=== PATIENT | male | born 1980 | race Caucasian/White ===

== ENCOUNTER 2023-04-16 09:44 | Emergency (ER) | payer BC, SELFPAY ==
[2023-04-16 09:55] VITALS: BP 123/65; PULSE 72; RESP 18; TEMP 37.3; O2SAT 97; BMI 36.2
--- NOTE | 2023-04-16 10:05 | CRLHL7_ITS ---
For Patients: As a result of the Cures Act, medical imaging exams and procedure reports are released immediately into your electronic medical record. You may view this report before your referring provider. If you have questions, please contact your health care provider. INDICATION: Chest pain COMPARISON: None TECHNIQUE: PA and lateral views of the chest were acquired FINDINGS: TUBES AND LINES: None. HEART AND MEDIASTINUM: The heart size is normal. The mediastinal contour appears normal for patient age. LUNGS AND PLEURAL SPACES: The lungs appear normal.The pleural spaces are unremarkable. OSSEOUS STRUCTURES: Age-appropriate appearance. No acute focal finding. IMPRESSION: No evidence of active pulmonary disease. Dictated by Castillo Rizo MD @ 04/16/2023 10:48:43 AM (Electronically Signed)
[2023-04-16 10:29] LABS: Basophils Absolute Auto 0.02 K/uL (0.00-0.30); Basophils Percent Auto 0.3 % (0.0-3.0); Eosinophils Absolute Auto 0.16 K/uL (0.00-0.50); Eosinophils Percent Auto 2.2 % (0.0-7.0); Hematocrit 41.5 % (37.0-53.0); Hemoglobin* 14.1 gm/dL (13.5-17.5); Immature Granulocytes Abs Auto 0.01 K/uL (0.00-0.30); Immature Granulocytes Pct Auto 0.1 %; Lymphocytes Percent Auto 16.8 % (20-44); Mean Corpuscular HGB Conc 34 gm/dL (32-36); Mean Corpuscular Hemoglobin 29 pg (26-34); Mean Corpuscular Volume 85 fL (80-100); Monocytes Percent Auto 7.9 % (0.0-11.0); Neutrophils Percent Auto 72.7 % (42.0-72.0); Platelet Count* 257 K/uL (140-440); RDW Coefficient of Variation % 11.8 % (11.5-15.5); Red Blood Count 4.89 m/uL (4.30-5.90); White Blood Count* 7.38 K/uL (4.50-11.00)
[2023-04-16 10:32] LABS: Slide Review Reflex No
[2023-04-16 10:44] LABS: Chloride* 107 mmol/L (96-114); Potassium* 4.3 mmol/L (3.6-5.1); Sodium* 139 mmol/L (135-149)
--- NOTE | 2023-04-16 10:45 | ED.CHESTPAIN ---
HPI - Chest Pain General Date Seen: 04/16/23 Chief Complaint: Chest Pain Stated Complaint: Chest pain Time Seen by Provider: 04/16/23 09:48 Source: patient Mode of arrival: ambulatory Limitations: no limitations History of Present Illness HPI narrative: Patient is a 42-year-old male with upper midsternal chest pain. Has a history of high blood pressure. Has not smoked in over 20 years. No family history of heart conditions. No other pertinent medical problems. States the pain started yesterday notices it is her worst with movement. Occasionally positional changes makes the pain worse. States sitting in bed the pain is greatly improved. Also states he just took some Aleve prior to arrival. States it is a dull pain to his chest and is also painful in deep breaths. Denies fevers, chills, shortness of breath, lightheadedness, dizziness, weakness, numbness, vision changes, abdominal pain. Denies ever having symptoms like this before. States symptoms have seemed pretty consistent since they began last night. No history of blood clots or cancer. No recent surgeries or trauma. Related Data Home Medications Medication Instructions Recorded Confirmed lisinopril 10 mg tablet 10 mg PO DAILY 04/16/23 04/16/23 sertraline 100 mg tablet 100 mg PO DAILY 04/16/23 04/16/23 Allergies Allergy/AdvReac Type Severity Reaction Status Date / Time amoxicillin Allergy Verified 04/16/23 09:53 Review of Systems Status of ROS Reports: 10 or more systems reviewed and unremarkable except as noted in History and below PFS PFS Social History Smoking Status: Former smoker Do you use any of these nicotine containing products: None Second hand tobacco smoke exposure: No How often do you have a drink containing alcohol: never How often do you have six or more drinks on one occasion: Never AUDIT-C Alcohol total score: 0 Non-prescribed substance use: denies use service: No Exam Narrative Exam Narrative: Const: Well-nourished, Well-developed, in mild distress Eyes: PERRL, no conjunctival injection, and symmetrical lids HENT: Atraumatic external nose and ears. Moist mucous membranes. Neck: Symmetric, trachea midline, No thyromegaly. CVS: RRR, No murmurs or gallops. Peripheral pulses 2+ and equal in all extremities RESP: Unlabored respiratory effort. Clear to auscultation bilaterally. GI: Nontender/Nondistended, No rebound or guarding. MSK:Extremities w/o deformity, Normal Active ROM Skin: Warm, Dry. No rashes or lesions. Neuro: Normal Muscle tone, No focal neurological deficits. Psych: Awake, Alert, & Oriented x3. Appropriate mood and affect. Const Vital Signs, click to edit/add: Vital Signs - 24 hr 04/16/23 09:55 Temperature 99.2 F Pulse Rate [Apical] 72 Respiratory Rate 18 Blood Pressure [Right Upper Arm] 123/65 Pulse Oximetry 97 Oxygen Delivery Method Room Air Course Vital Signs Vital signs: Initial Vital Signs Temperature 99.2 F 04/16/23 09:55 Temperature Source Temporal Artery Scan 04/16/23 09:55 Pulse Rate 72 04/16/23 09:55 Pulse Rhythm Regular 04/16/23 09:55 Respiratory Rate 18 04/16/23 09:55 Blood Pressure 123/65 04/16/23 09:55 Blood Pressure Mean 84 04/16/23 09:55 Blood Pressure Position Supine 04/16/23 09:55 Pulse Oximetry 97 04/16/23 09:55 Oxygen Delivery Method Room Air 04/16/23 09:55 Vital Signs Temperature 99.2 F 04/16/23 09:55 Pulse Rate 72 04/16/23 09:55 Respiratory Rate 18 04/16/23 09:55 Blood Pressure 123/65 04/16/23 09:55 Pulse Oximetry 97 04/16/23 09:55 Oxygen Delivery Method Room Air 04/16/23 09:55 Temperature 99.2 F 04/16/23 09:55 Pulse Rate 72 04/16/23 09:55 Respiratory Rate 18 04/16/23 09:55 Blood Pressure 123/65 04/16/23 09:55 Pulse Oximetry 97 04/16/23 09:55 Oxygen Delivery Method Room Air 04/16/23 09:55 MDM - Chest Pain MDM Narrative Medical decision making narrative: Patient is a 42-year-old male presenting to the emergency department for chest pain. At this time his heart score is 1 with his hypertension. Symptoms her not there at rest but he does notice them sometimes with positional change. Sign having any fevers or shortness of breath. She is PERC negative. PE is unlikely. Differential this client includes ACS, pneumonia. Seems unlikely to be pneumothorax but chest x-ray done to better evaluate this. While he does have pain with positional changes the positions them to make the pain the best is when he lays back which makes pericarditis seem less likely. He did have a recent flu like symptoms and I am considering myocarditis. CBC, BMP, COVID chest flu/RSV, troponin, chest x-ray all ordered. EKG shows no concerning findings. Lab work shows no concerning findings. Chest x-ray shows no concerning findings as interpreted by myself and the radiologist. Seems unlikely to be pneumonia or pneumothorax at this time. Does not appear to be ACS. Within normal troponin seems unlikely to be myocarditis. Does not meet criteria for pericarditis. COVID/flu/RSV is negative. Repeat troponin was also normal. At this time I cannot say definitively was causing symptoms but does not appear to be anything emergent. He is safe for discharge. He is agreeable with this plan. Lab Data Labs: Lab Results 04/16/23 04/16/23 04/16/23 Range/Units 10:05 10:15 10:18 WBC 7.38 (4.50-11.00) K/uL RBC 4.89 (4.30-5.90) m/uL Hgb 14.1 (13.5-17.5) gm/dL Hct 41.5 (37.0-53.0) % MCV 85 (80-100) fL MCH 29 (26-34) pg MCHC 34 (32-36) gm/dL RDW Coeff of Elsy 11.8 (11.5-15.5) % Plt Count 257 (140-440) K/uL Neut % (Auto) 72.7 H (42.0-72.0) % Lymph % (Auto) 16.8 L (20-44) % Stanton % (Auto) 7.9 (0.0-11.0) % Eos % (Auto) 2.2 (0.0-7.0) % Baso % (Auto) 0.3 (0.0-3.0) % Neut # (Auto) 5.40 (1.7-7.0) K/uL Lymph # (Auto) 1.20 (0.90-2.90) K/uL Stanton # (Auto) 0.60 (0.00-0.90) K/UL Eos # (Auto) 0.16 (0.00-0.50) K/uL Baso # (Auto) 0.02 (0.00-0.30) K/uL Abs Immat Gran (auto) 0.01 (0.00-0.30) K/uL Imm/Tot Granulo (auto) 0.1 % Sodium 139 (135-149) mmol/L Potassium 4.3 (3.6-5.1) mmol/L Chloride 107 (96-114) mmol/L Carbon Dioxide 25 (20-32) mmol/L Anion Gap 7 (7-15) mEq/L BUN 14 (5-24) mg/dL Creatinine 0.8 (0.5-1.5) mg/dL Estimated Creat Clear 145.23 Estimated GFR 114 ml/min Glucose 108 (60-115) mg/dL Calcium 9.3 (8.4-10.6) mg/dL SARS-CoV-2 (PCR) Negative SARS-CoV-2 (Negative) Influenza Type A (PCR) Negative PCR FLU A (Negative) Influenza Type B (PCR) Negative PCR FLU B (Negative) RSV (PCR) Negative PCR RSV (Negative) POC Troponin I 0.00 L (0.01-0.04) ng/ml 04/16/23 Range/Units 12:30 WBC (4.50-11.00) K/uL RBC (4.30-5.90) m/uL Hgb (13.5-17.5) gm/dL Hct (37.0-53.0) % MCV (80-100) fL MCH (26-34) pg MCHC (32-36) gm/dL RDW Coeff of Elsy (11.5-15.5) % Plt Count (140-440) K/uL Neut % (Auto) (42.0-72.0) % Lymph % (Auto) (20-44) % Stanton % (Auto) (0.0-11.0) % Eos % (Auto) (0.0-7.0) % Baso % (Auto) (0.0-3.0) % Neut # (Auto) (1.7-7.0) K/uL Lymph # (Auto) (0.90-2.90) K/uL Stanton # (Auto) (0.00-0.90) K/UL Eos # (Auto) (0.00-0.50) K/uL Baso # (Auto) (0.00-0.30) K/uL Abs Immat Gran (auto) (0.00-0.30) K/uL Imm/Tot Granulo (auto) % Sodium (135-149) mmol/L Potassium (3.6-5.1) mmol/L Chloride (96-114) mmol/L Carbon Dioxide (20-32) mmol/L Anion Gap (7-15) mEq/L BUN (5-24) mg/dL Creatinine (0.5-1.5) mg/dL Estimated Creat Clear Estimated GFR ml/min Glucose (60-115) mg/dL Calcium (8.4-10.6) mg/dL SARS-CoV-2 (PCR) (Negative) Influenza Type A (PCR) (Negative) Influenza Type B (PCR) (Negative) RSV (PCR) (Negative) POC Troponin I 0.00 L (0.01-0.04) ng/ml Imaging Data Chest x-ray: Radiologist's impression: No evidence of active pulmonary disease. Dictated by Castillo Rizo MD @ 04/16/2023 10:48:43 AM ECG Data Attestation: I personally reviewed and interpreted this ECG as follows: Prior ECG tracings: not available for review Interpretation: Normal sinus rhythm with a rate of 80 beats per minute, normal intervals, normal axis, no ST or T-wave abnormalities. Discharge Plan Discharge Clinical Impression: Atypical chest pain Patient Disposition: Home, Self-Care Condition: Stable Instructions: Noncardiac Chest Pain (ED) Additional Instructions: If symptoms persist I recommend following up with the primary care provider. Return to the emergency department for new or worsening symptoms. Prescriptions: No Action lisinopril 10 mg tablet 10 mg PO DAILY sertraline 100 mg tablet 100 mg PO DAILY Follow Up/Referrals: Provider,Not a Local [Primary Care Provider] - Stand Alone Forms: [employer] Info Instructions
--- OUTSIDE RECORDS SUMMARY | 2023-04-16 10:45 | XMS_ITS | Encounter Summary ---
Author Name Unknown Organization [facility] Address [address] [place] [address] Care Team Providers Care Family Nurse Practitioner Name Role Phone Sindhu Bonds Primary Care Provider [phone] Jasen Blanco Unavailable Unavailable Radha De La Cruz MD Unavailable UnavailRebekah Kaplan MD Unavailable [phone] Reason for Visit * Reason Comments Chest Pain Encounter Details Date Type Department Care Team (Late st Contact Info) Description 09/16/2022 11:18 PM CDT - 09/17/2022 12:26 AM CDT [facility] Emergency Dept [address] [place] [phone] Ochoa Price DO [facility] [address] [place] [id number] Chest pain Discharge Disposition: Home or Self Care Social History Tobacco Use Types Packs/Day Years Used Date Smoking Tobacco: Never Assessed PHQ-2 Answer Date Recorded PHQ-2 Score 0 12/31/2020 Sex and Gender Information Value Date Recorded Sex Assigned at Not on file Gender Identity Not on file Sexual Orientation Not on file COVID-19 Exposure Response Date Recorded In the last 10 days, have yo u been in contact with someone who was confirmed or suspected to have Coronavirus/COVID-19? No / Unsure 09/16/2022 8:17 PM CDT documented as of this encounter Last Filed Vital Signs Vital Sign Reading Time Taken Comments Blood Pressure 142/90 09/17/2022 12:25 AM CDT Pulse 78 09/17/2022 12:25 AM CDT Temperature 36.4 ??C (97.6 ??F) 09/16/2022 8:54 PM CD T Respiratory Rate 18 09/17/2022 12:25 AM CDT Oxygen Saturation 98% 09/17/2022 12:25 AM CDT Inhaled Oxygen Concentration - - Weight - - Height - - Body Mass Index - - documented in this encounter Discharge Instructions * Discharge Instructions* Jennifer Ferrera PA-C - 09/17/2022 12:14 AM CDT You were seen emergency department today for evaluation of chest pain. Your EKG was reassuring. No evidence of heart attack or other heart damage. We also checked your pancreas and liver function, those both appeared normal. At this time, cause of your chest pain is unknown. We recommend the following: - Can consider Tums, Maalox, over the counter Pepcid - Try following a low fat diet, this may prevent recurrence of symptoms - Follow up closely with your primary care provider in the next 1-2 weeks for recheck - Return here if worsening and uncontrolled chest pain, difficulty breathing Discharge Instructions Chest Pain You have been seen today for chest pain or discomfort. At this time, your provider has found no signs that your chest pain is due to a serious or life- threatening condition, (or you have declined more testing and/or admission to the hospital). However, sometimes there is a serious problem that doesnot show up right away. Your evaluation today may not be complete and you may need further testing and evaluation. Generally, every Emergency Department visit should have a follow-up clinic visit with either a primary or a specialty clinic/provider. Please follow-up as instructed by your emergency provider today. Return to the Emergency Department if: Your chest pain changes, gets worse, starts to happen more often, or comes with less activity. You are newly short of breath. You get very weak or tired. You pass out or faint. You have any new symptoms, like fever, cough, numb legs, or you cough up blood. You have anything else that worries you. Until you follow-up with your regular provider, please do the following: Take one aspirin daily unless you have an allergy or are told not to by your provider. If a stress test appointment has been made, go to the appointment. If you have questions, contact your regular provider. Follow-up with your regular provider/clinic as directed; this is very important. If you were given a prescription for medicine here today, be sure to read all of the information (including the package insert) that comes with your prescription. This will include important information about the medicine, its side effects, and any warnings that you need to know about. The pharmacist who fills the prescription can provide more information and answer questions you may have about the medicine. If you have questions or concerns that the pharmacist cannot address, please call or return to the Emergency Department. Remember that you can always come back to the Emergency Department if you are not able to see your regular provider in the amount of time listed above, if you get any new symptoms, or if there is anything that worries you. * Attachments The following attachments cannot be sent through Care Everywhere. * Chest Pain, Noncardiac (Filipino) * Eating a Low-fat Diet (Filipino) documented in this encounter Medications at Time of Discharge Medication Sig Dispensed Refills Start Date End Date sertraline (ZOLOFT) 50 MG tablet TAKE 1 TABLET BY MOUTH EVERY DAY 0 10/24/2020 documented as of this encounter ED Notes * Hanh Lyn RN - 09/16/2022 8:54 PM CDT Pt presents to ED with head pressure and chest pressure and chest pain. Took BP at home and BP was 154/94. Pt states the pain is coming and going. States arms are feeling tingly and tight. denies sob, n/v. Had swelling in his ankles after a 3 hour car ride last weekend. * Jennifer Ferrera PA-C - 09/16/2022 8:17 PM CDT History Chief Complaint: Chest Pain HPI Rey Montemayor is a 42 year old male who is otherwise generally healthy presenting today for chest pain that started acutely at 1500. Chest pain encompasses entire chest and radiated up to his arms. No radiation to his neck, back, jaw, abdomen. Pain started while he was in a meeting and reports the room was very hot. He did not have associated nausea, dizziness, diaphoresis, shortness of breath. He has never had pain like this before. He drove home from work and the pain seemed to improve a little bit. He then ate dinner and pain acutely worsened. This prompted him to come here. Upon my evaluation, pain has subsided. He denies any recent surgery or hospitalization. No personal or family history of PE or DVT. He didtravel [place] a campsite, [place] 3[place], about 1 week ago and noticed bilateral lower extremity swelling following this that has since resolved. Denies any recent infectious symptoms including fevers, chills, cough, congestion. Independent Historian: None - Patient Only Review of External Notes: Reviewed family medicine visit from 08/27/21. Patient has been diagnosed with CLIFF and essential hypertension, currently treating HTN with lifestyle modifications, no medications. Medications: sertraline (ZOLOFT) 50 MG tablet Past Medical History: LCIFF Hypertension Past Surgical History: No past surgical history on file. Physical Exam Patient Vitals for the past 24 hrs: BP Temp Pulse Resp SpO2 09/17/22 0025 (!) 142/90 -- 78 18 98 % 09/16/222054 (!) 154/97 -- -- -- -- 09/16/222053 -- 97.6 ??F (36.4 ??C) 74 20 96 % Physical Exam BP (!) 142/90 Pulse 78 Temp 97.6 ??F (36.4 ??C) Resp 18 SpO2 98% General: Well-developed and well-nourished. Patient appears comfortable. Head: Atraumatic. Normocephalic. Neck: No JVD. EENT: PERRL. EOMI. Moist mucus membranes. CV: Regular rate and rhythm. No appreciable murmurs, rubs, or gallops. No reproducible chest wall tenderness. Respiratory: Breathing comfortably on room air. Lungs clear to auscultation bilaterally without wheezes, rhonchi, or rales. GI: Soft, non-distended. Non-tender abdomen. No rebound, rigidity, or guarding. Msk: Extremities without tenderness to palpation or deformity. No lower extremity edema. Skin: Warm and dry. No rashes. Neuro: Awake, alert, and conversant. No focal neurologic deficits. Psych: Appropriate mood and affect. Emergency Department Course ECG ECG results from 09/16/22 EKG 12 lead Value Systolic Blood Pressure Diastolic Blood Pressure Ventricular Rate 59 Atrial Rate 59 AR Interval 156 QRS Duration 92 QT 434 QTc 429 P Alb[place] 44 R AXIS -6 T Alb[place] -8 Interpretation ECG Sinus bradycardia Moderate voltage criteria for LVH, may be normal variant Borderline ECG No previous ECGs available Dr. Price interpreted this ECG Imaging: Chest XR, PA & LAT Final Result IMPRESSION: Negative chest. Report per radiology Laboratory: Labs Ordered and Resulted from Time of ED Arrival to Time of ED Departure BASIC METABOLIC PANEL - Abnormal Result Value Sodium 139 Potassium 4.2 Chloride 101 Carbon Dioxide (CO2) 26 Anion Gap 12 Urea Nitrogen 18.1 Creatinine 1.25 (*) Calcium 9.8 Glucose 127 (*) GFR Estimate 74 TROPONIN T, HIGH SENSITIVITY - Normal Troponin T, High Sensitivity 8 TROPONIN T, HIGH SENSITIVITY - Normal Troponin T, High Sensitivity 7 TROPONIN T, HIGH SENSITIVITY - Normal Troponin T, High Sensitivity 9 HEPATIC FUNCTION PANEL - Normal Protein Total 7.3 Albumin 4.5 Bilirubin Total 0.3 Alkaline Phosphatase 77 AST 41 ALT 58 Bilirubin Direct <0.20 LIPASE - Normal Lipase 56 CBC WITH PLATELETS AND DIFFERENTIAL WBC Count 7.8 RBC Count 4.85 Hemoglobin 14.7 Hematocrit 42.2 MCV 87 MCH 30.3 MCHC 34.8 RDW 11.9 Platelet Count 254 % Neutrophils 64 % Lymphocytes 26 % Monocytes 6 % Eosinophils 4 % Basophils 0 % Immature Granulocytes 0 NRBCs per 100 WBC 0 Absolute Neutrophils 5.0 Absolute Lymphocytes 2.0 Absolute Monocytes 0.5 Absolute Eosinophils 0.3 Absolute Basophils 0.0 Absolute Immature Granulocytes 0.0 Absolute NRBCs 0.0 Emergency Department Course & Assessments: Assessments and Consultations: Patient was seen in conjunction with attending physician Dr. Price. 2322 I performed my initial evaluation of the patient ED Course as of 09/17/22 0031 [facility] Sep 16, [id number] Dr. Price discussed the case with Jennifer Ferrera PA-C. Discussed presentation, exam, ddx, plan. 2344 Dr. Price' evaluation. Independent Interpretation (X-rays, CTs, rhythm strip): CXR without focal consolidation, pleural effusion, pneumothorax. Heart size normal. Social Determinants of Health affecting care: None Disposition: The patient was discharged to home. Impression & Plan Medical Decision Makin-year-old male presenting as above. Differential diagnosis included ACS, PE, aortic dissection, costochondritis, GERD, pancreatitis, cholecystitis. EKG and repeat troponins were reassuring, so doubt ACS. He is PERC negative, so doubt PE. Lipase within normal limits so doubt pancreatitis. No significant electrolyte derangements. CBC within normal limits. Upon my evaluation, the patient's pain iscompletely resolved, so I doubt an aortic dissection. He had no reproducible chest wall tenderness,so I do not feel this is consistent with a costochondritis or chest wall strain. At this time, etiology of patient's chest pain is unclear. His vital signs and exam are both very reassuring. Discussed that it may be related to diet or could be related to GERD. I suggested that if he has recurrence of this pain, he can try Maalox or Tums. Certainly, if his chest pain returns and is more severe, if he has shortness of breath, syncope, dizziness, nausea, diaphoresis he should return here for further work-up. Critical Care time: was 0 minutes for this patient excluding procedures. Diagnosis: ICD-10-CM 1. Chest pain R07.9 September 16, 2022 RL Latif Amanda, PA-C 09/17/22 0031 * Ochoa Price DO - 09/16/2022 8:17 PM CDT Emergency Department Attending Supervision Note 09/16/2022 11:39 PM I evaluated this patient in conjunction with Jennifer Ferrera PA-C I have participated in the care of the patient and personally performed cowan elements of the history, exam, and medical decision making. HPI: Rey Montemayor is a 42 year old male who presents for CP. At 1500, he was in a meeting and felt central CP with tingling in arms. It was hot in the room, but he was not short of breath, nauseated, or diaphoretic. Went home. Ate dinner later, and had worsening pain. Pain gone now. Notably, he had B/L LE swelling after a 3 hour car ride after camping. Independent Historian: None - Patient Only Review of External Notes: Patient Vitals for the past 24 hrs: BP Temp Pulse Resp SpO2 09/16/222054 (!) 154/97 -- -- -- -- 09/16/222053 -- 97.6 ??F (36.4 ??C) 74 20 96 % EXAM: Constitutional: Vital signs reviewed as above. Head: No external signs of trauma noted. Eyes: Pupils are equal, round, and reactive to light. Neck: No JVD noted Cardiovascular: normal rate, Regular rhythm and normal heart sounds. No murmur heard. Equal B/L peripheral pulses. Pulmonary/Chest: Effort normal and breath sounds normal. No respiratory distress. Patient has no wheezes. Patient has no rales. Gastrointestinal: Soft. There is no tenderness on my exam. Musculoskeletal/Extremities: No pitting edema noted. Normal tone. Neurological: Patient is alert and oriented to person, place, and time. Skin: Skin is warm and dry. There is no diaphoresis noted. Psychiatric: The patient appears calm. Assessments, Consultations/Discussion of Management or Tests, Independent Image interpretation ED Course as of 09/17/22 0022 [facility] Sep 16, 20229 Dr. Price discussed the case with Jennifer Ferrera PA-C. Discussed presentation, exam, ddx, plan. 2344 Dr. Price' evaluation. Social Determinants of Health affecting care: None MEDICAL DECISION MAKING/ASSESSMENT AND PLAN: Rey Montemayor is a 42 year old male presented to the Emergency Department with a complaint of chestpain. Fortunately the workup in the ED has been unremarkable and at this time I am not concerned for ACS. The EKG shows sinus bradycardia. The troponin is negative. Based on the [facility] high sensitivity troponin pathway, this should rule the patient out for myocardial injury I considered other possible causes of chest pain including PE (PERC negative), infection, pneumothorax, aortic dissection, and even more benign causes such as reflux and esophageal motility issues. GERD is a possibility. The physical exam, laboratory, and radiological findings listed above make life threatening conditions less likely. At this time I believe the patient is safe for discharge. I have encouraged close outpatient follow up. Anticipatory guidance given prior to discharge. Impression: ICD-10-CM 1. Chest pain R07.9 DISPOSITION: Ochoa Alexandra, DO 09/16/2022 [facility] EMERGENCY DEPT Ochoa Price DO 09/17/22 0023 documented in this encounter Plan of Treatment Not on file documented as of this encounter Procedures Procedure Name Priority Date/Time Associated Diagnosis Comments EXTRA TUBE STAT 09/16/2022 11:38 PM CDT EXTRA BLUE TOP TUBE STAT 09/16/2022 1 1:38 PM CDT TROPONIN T, HIGH SENSITIVITY STAT 09/16/2022 11:38 PM CDT LIPASE Add-On 09/16/2022 11:38 PM CDT HEPATIC FUNCTION PANEL Add-On 09/16/2022 11:38 PM CDT TROPONIN T, HIGH SENSITIVITY STAT 09/16/2022 10:20 PM CDT XR CHEST 2 VIEWS STAT 09/16/2022 9:21 PM CDT EKG 12-LEAD, TRACING ONLY STAT 09/16/2022 9:15 PM CDT EXTRA TUBE STAT 09/16/2022 9:06 PM CDT EXTRA RED TOP TUBE STAT 09/16/2022 9: 06 PM CDT EXTRA BLUE TOP TUBE STAT 09/16/2022 9 :06 PM CDT CBC WITH PLATELETS AND DIFFERENTIAL STAT 09/16/2022 9:06 PM CDT TROPONIN T, HIGH SENSITIVITY STAT 09/16/2022 9:06 PM CDT CBC WITH PLATELETS & DIFFERENTIAL STAT 09/16/2022 9:06 PM CDT BASIC METABOLIC PANEL STAT 09/16/2022 9:06 PM CDT documented in this encounter Results * Lipase (09/16/2022 11:38 PM CDT) Lipase 56 13 - 60 U/L 09/17/2022 12:10 AM CDT [facility] Blood STRUCTURE OF RIGHT UPPER LIMB / Unknown Venipuncture / Unknown 09/16/2022 11:38 PM CDT 09/16/2022 11:40 PM CDT Ochoa Price DO LAB - BLOOD [facility] [address] [facility] Lab (1st floor, no room number) [place] [address], [facility] [phone] * Hepatic panel (09/16/2022 11:38 PM CDT) Protein Total 7.3 6.4 - 8.3 g/dL 09/17/2022 12:10 AM CDT [facility] Albumin 4.5 3.5 - 5.2 g/dL 09/17/2022 12:10 AM CDT [facility] Bilirubin Total 0.3 <=1.2 mg/dL 09/17/2022 12:10 AM CDT [facility] Alkaline Phosphatase 77 40 - 129 U/L 09/17/2022 12:10 AM CDT [facility] AST 41 0 - 45 U/L 09/17/2022 12:10 AM CDT [facility] Comment:Reference intervals for this test were updated on 09/06/2022 to more accurately reflect our healthy population. There may be differences in the flagging of prior results with similar values performed with this method. Interpretation of those prior results can be made in the context of the updated reference intervals. ALT 58 0 - 70 U/L 09/17/2022 12:10 AM CDT [facility] Comment:Reference intervals for this test were updated on 09/06/2022 to more accurately reflect our healthy population. There may be differences in the flagging of prior results with similar values performed with this method. Interpretation of those prior results can be made in the context of the updated reference intervals. Bilirubin Direct <0.20 0.00 - 0.30 mg/dL 09/17/2022 12:10 AM CDT LABORATORY Blood STRUCTURE OF RIGHT UPPER LIMB / Unknown Venipuncture / Unknown 09/16/2022 11:38 PM CDT 09/16/2022 11:40 PM CDT Ochoa Price LAB - BLOOD [facility] [address] Lab (1st floor, no room number) [place] [address], [facility] [phone] * Extra Blue Top Tube (09/16/2022 11:38 PM CDT) Hold Specimen JIC 09/17/2022 12:47 AM CDT LABORATORY Blood STRUCTURE OF RIGHT UPPER LIMB / Unknown Venipuncture / Unknown 09/16/2022 11:38 PM CDT 09/16/2022 11:40 PM CDT Ochoa Price LAB - BLOOD [facility] Performing Organization Address City/[facility]/ZIP Co de Phone Number LABORATORY [facility] [address] Lab (1st floor, no room number) [place] [address], [place] [phone] * Troponin T, High Sensitivity (now) (09/16/2022 11:38 PM CDT) Troponin T, High Sensitivity 9 <=22 ng/L 09/17/2022 12:10 AM CDT LABORATORY Comment: Either a High Sensitivity Troponin T baseline (0 hours) value = 100 ng/L, or an increase in High Sensitivity Troponin T = 7 ng/L at 2 hours compared to 0 hours (2-0 hours), suggests myocardial injury, and urgent clinical attention is required. ?? If the 2-0 hours increase is <7 ng/L, a High Sensitivity Troponin T result above gender-specific reference ranges warrants further evaluation. Recommendations for further evaluation include correlation with clinical decision-making tool (e.g., HEART), a 3rd High Sensitivity Troponin T test 2 hours after the 2nd (a 20% change from baseline would represent concern), admission for observation, close PCC/cardiology follow-up, or urgent outpatient provocative testing. Blood STRUCTURE OF RIGHT UPPER LIMB / Unknown Venipuncture / Unknown 09/16/2022 11:38 PM CDT 09/16/2022 11:40 PM CDT Ochoa Price LAB - BLOOD LUIGI [facility] Performing Organization Address [facility]/ZIP Co de Phone Number [facility] [address] Lab (1st floor, no room number) [place] [address], [facility] [phone] * Troponin T, High Sensitivity (now) (09/16/2022 10:20 PM CDT) [facility] Troponin T, High Sensitivity 7 <=22 ng/L 09/16/2022 10:51 PM CDT LABORATORY Comment: Either a High Sensitivity Troponin T baseline (0 hours) value = 100 ng/L, or an increase in High Sensitivity Troponin T = 7 ng/L at 2 hours compared to 0 hours (2-0 hours), suggests myocardial injury, and urgent clinical attention is required. ?? If the 2-0 hours increase is <7 ng/L, a High Sensitivity Troponin T result above gender-specific reference ranges warrants further evaluation. Recommendations for further evaluation include correlation with clinical decision-making tool (e.g., HEART), a 3rd High Sensitivity Troponin T test 2 hours after the 2nd (a 20% change from baseline would represent concern), admission for observation, close PCC/cardiology follow-up, or urgent outpatient provocative testing. Blood STRUCTURE OF RIGHT UPPER LIMB / Unknown Venipuncture / Unknown 09/16/2022 10:20 PM CDT 09/16/2022 10:23 PM CDT Ochoa Price DO LAB - BLOOD [facility]IGI [facility] [address] Lab (1st floor, no room number) [place] [address], [facility] [phone] * Chest XR, PA & LAT (09/16/2022 9:21 PM CDT) Anatomical Region Laterality Modality Chest Computed Radiogr aphy 09/16/2022 9:21 PM CDT Impressions 09/16/2022 9:25 PM CDT IMPRESSION: Negative chest. Narrative 09/16/2022 9:25 PM CDT EXAM: XR CHEST 2 VIEWS LOCATION: [facility] DATE: 09/16/2022 INDICATION: chest pain, COMPARISON: None. Procedure Note Prince Stevens MD - 09/16/2022 EXAM: XR CHEST 2 VIEWS LOCATION: [facility] DATE: 09/16/2022 INDICATION: chest pain, COMPARISON: None. IMPRESSION: Negative chest. Ochoa Price DO IMG DIAGNOSTIC I MAGING ORDERABLES * EKG 12 lead (09/16/2022 9:15 PM CDT) Systolic Blood Pressure mmHg RADIOLOGY RESULTS Diastolic Blood Pressure mmHg RADIOLOGY RESULTS Ventricular Rate 59 BPM RAD IOLOGY RESULTS Atrial Rate 59 BPM RADIOLOG Y RESULTS AR Interval 156 ms RADIOLOG Y RESULTS QRS Duration 92 ms RADIOLO GY RESULTS QT 434 ms RADIOLOGY RESULTS QTc 429 ms RADIOLOGY RESULTS P Albion 44 degrees RADIOLOGY RESULTS R AXIS -6 degrees RADIOLOGY RESULTS T [place] -8 degrees RADIOLOGY RESULTS Interpretation ECG Sinus bradycardia Moderate voltage criteria for LVH, may be normal variant Borderline ECG No previous ECGs available Confirmed by - EMERGENCY ROOM, PHYSICIAN ([id number]), supervising editor news reel LACHO MG (Ronnie) on 09/17/2022 6:38:27 AM RADIOLOGY RESULTS 09/16/2022 9:15 PM CDT 09/17/2022 6:38 AM CDT Ochoa Price DO ECG ORDERABLES RADIOLOGY RESULTS * Extra Red Top Tube (09/16/2022 9:06 PM CDT) Hold Specimen JIC 09/16/2022 10:16 PM CDT [facility] Blood STRUCTURE OF RIGHT UPPER LIMB / Unknown Venipuncture / Unknown 09/16/2022 9:06 PM CDT 09/16/2022 9:09 PM CDT Ochoa Price DO LAB - BLOOD LUIGI [facility] [address] Lab (1st floor, no room number) [place] [address], [facility] [phone] * Extra Blue Top Tube (09/16/2022 9:06 PM CDT) Hold Specimen JIC 09/16/2022 10:16 PM CDT [facility] Blood STRUCTURE OF RIGHT UPPER LIMB / Unknown Venipuncture / Unknown 09/16/2022 9:06 PM CDT 09/16/2022 9:09 PM CDT Ochoa Price DO LAB - BLOOD LUIGI [facility] Performing Organization Address [facility]/ZIP Co de Phone Number [facility] [address] Lab (1st floor, no room number) [place] [address], [facility] [phone] * CBC with platelets and differential (09/16/2022 9:06 PM CDT) WBC Count 7.8 4.0 - 11.0 10e3/uL 09/16/2022 9:12 PM CDT [facility] RBC Count 4.85 4.40 - 5.90 10e6/uL 09/16/2022 9:12 PM CDT [facility] Hemoglobin 14.7 13.3 - 17.7 g/dL 09/16/2022 9:12 PM CDT [facility] Hematocrit 42.2 40.0 - 53.0 % 09/16/2022 9:12 PM CDT [facility] MCV 87 78 - 100 fL 09/16/2022 9:12 PM CDT [facility] MCH 30.3 26.5 - 33.0 pg 09/16/2022 9:12 PM CDT [facility] MCHC 34.8 31.5 - 36.5 g/dL 09/16/2022 9:12 PM CDT [facility] RDW 11.9 10.0 - 15.0 % 09/16/2022 9:12 PM CDT [facility] Platelet Count 254 150 - 450 10e3/uL 09/16/2022 9:12 PM CDT [facility] % Neutrophils 64 % 09/16/2022 9:12 PM CDT [facility] % Lymphocytes 26 % 09/16/2022 9:12 PM CDT [facility] % Monocytes 6 % 09/16/2022 9:12 PM CDT [facility] % Eosinophils 4 % 09/16/2022 9:12 PM CDT [facility] % Basophils 0 % 09/16/2022 9:12 PM CDT [facility] % Immature Granulocytes 0 % 09/16/2022 9:12 PM CDT [facility] NRBCs per 100 WBC 0 <1 /100 023 9:12 PM CDT [facility] Absolute Neutrophils 5.0 1.6 - 8.3 10e3/uL 09/16/2022 9:12 PM CDT [facility] Absolute Lymphocytes 2.0 0.8 - 5.3 10e3/uL 09/16/2022 9:12 PM CDT [facility] Absolute Monocytes 0.5 0.0 - 1.3 10e3/uL 09/16/2022 9:12 PM CDT [facility] Absolute Eosinophils 0.3 0.0 - 0.7 10e3/uL 09/16/2022 9:12 PM CDT [facility] Absolute Basophils 0.0 0.0 - 0.2 10e3/uL 09/16/2022 9:12 PM CDT [facility] Absolute Immature Granulocytes 0.0 <=0.4 10e3/uL 09/16/2022 9:12 PM CDT [facility] Absolute NRBCs 0.0 10e3/uL 09/16/2022 9:12 PM CDT [facility] Blood STRUCTURE OF RIGHT UPPER LIMB / Unknown Venipuncture / Unknown 09/16/2022 9:06 PM CDT 09/16/2022 9:10 PM CDT Ochoa Price DO LAB - BLOOD LUIGI DAVIDSON [facility] [address] Lab (1st floor, no room number) [place] [address], [facility] [phone] * (ABNORMAL) Basic metabolic panel (BMP) (09/16/2022 9:06 PM CDT) [facility] Sodium 139 136 - 145 mmol/L 09/16/2022 9:31 PM CDT LABORATORY Potassium 4.2 3.4 - 5.3 mmol/L 09/16/2022 9:31 PM CDT LABORATORY Chloride 101 98 - 107 mmol/L 09/16/2022 9:31 PM CDT LABORATORY Carbon Dioxide (CO2) 26 22 - 29 mmol/L 09/16/2022 9:31 PM CDT LABORATORY Anion Gap 12 7 - 15 mmol/L 09/16/2022 9:31 PM CDT LABORATORY Urea Nitrogen 18.1 6.0 - 20.0 mg/dL 09/16/2022 9:31 PM CDT LABORATORY Creatinine 1.25(H) 0.67 - 1.17 mg/dL 09/16/2022 9:31 PM CDT LABORATORY Calcium 9.8 8.6 - 10.0 mg/dL 09/16/2022 9:31 PM CDT LABORATORY Glucose 127(H) 70 - 99 mg/dL 09/16/2022 9:31 PM CDT LABORATORY GFR Estimate 74 >60 mL/min/1.7 3m2 09/16/2022 9:31 PM CDT LABORATORY Blood STRUCTURE OF RIGHT UPPER LIMB / Unknown Venipuncture / Unknown 09/16/2022 9:06 PM CDT 09/16/2022 9:10 PM CDT Ochoa Price DO LAB - BLOOD LUIGI DAVIDSON LABORATORY [facility] [address] Lab (1st floor, no room number) [place] [address], [facility] [phone] * Troponin T, High Sensitivity (now) (09/16/2022 9:06 PM CDT) [facility] Troponin T, High Sensitivity 8 <=22 ng/L 09/16/2022 9:31 PM CDT LABORATORY Comment: Either a High Sensitivity Troponin T baseline (0 hours) value = 100 ng/L, or an increase in High Sensitivity Troponin T = 7 ng/L at 2 hours compared to 0 hours (2-0 hours), suggests myocardial injury, and urgent clinical attention is required. ?? If the 2-0 hours increase is <7 ng/L, a High Sensitivity Troponin T result above gender-specific reference ranges warrants further evaluation. Recommendations for further evaluation include correlation with clinical decision-making tool (e.g., HEART), a 3rd High Sensitivity Troponin T test 2 hours after the 2nd (a 20% change from baseline would represent concern), admission for observation, close PCC/cardiology follow-up, or urgent outpatient provocative testing. Blood STRUCTURE OF RIGHT UPPER LIMB / Unknown Venipuncture / Unknown 09/16/2022 9:06 PM CDT 09/16/2022 9:10 PM CDT Ochoa Price DO LAB - BLOOD LUIGI DAVIDSON [facility] Organization Address City/State/ZIP Co de Phone Number LABORATORY [facility] [address] Lab (1st floor, no room number) [place] [address], [facility] [phone] documented in this encounter Visit Diagnoses Diagnosis Chest pain Chest pain, unspecified documented in this encounter Care Teams Family Nurse Practitioner Relationship Specialty Start Date End Date Sindhu Bonds [address] [place] [address] PCP - General Family Medicine 12/30/20 Jasen Blanco Genetic Counselor 12/30/20 Radha De La Cruz MD Neurology 12/30/20 Rebekah Walker MD [address] [place] [address] Genetics, Clinical 12/31/20 documented as of this encounter
--- OUTSIDE RECORDS SUMMARY | 2023-04-16 10:45 | XMS_ITS | Clinical Summary ---
Author Name Unknown Organization [facility] Address [address] [place] [address] Care Team Providers Care Clinical Trial Coordinator Name Role Phone Sindhu Bonds Mandy Primary Care Provider [phone] Jasen Blanco Unavailable Unavailable Radha De La Cruz MD Unavailable UnavailRebekah Kaplan MD Unavailable [phone] Allergies Active Allergy Reactions Criticality Noted Date Comments Amoxicillin Rash Low 04/09/2013 As a child Medications Medication Sig Dispensed Refills Start Date End Date Status sertraline (ZOLOFT) 50 MG tablet TAKE 1 TABLET BY MOUTH EVERY DAY 0 10/24/2020 Active Immunizations Name Administration Dates Next Due TDAP (Adacel,Boostrix) 02/14/2022 Social History Tobacco Use Types Packs/Day Years Used Date Smoking Tobacco: Never Assessed PHQ-2 Answer Date Recorded PHQ-2 Score 0 12/31/2020 Adolescent Education Answer Date Record ed Getting School Help Needed Not on file 12/18 Sex and Gender Information Value Date Recorded Sex Assigned at Not on file Gender Identity Not on file Sexual Orientation Not on file Last Filed Vital Signs Vital Sign Reading Time Taken Comments Blood Pressure 142/90 09/17/2022 12:25 AM CDT Pulse 78 09/17/2022 12:25 AM CDT Temperature 36.4 ??C (97.6 ??F) 09/16/2022 8:54 PM CD T Respiratory Rate 18 09/17/2022 12:2 5 AM CDT Oxygen Saturation 98% 09/17/2022 12: 25 AM CDT Inhaled Oxygen Concentration - - Weight 132.8 kg (292 lb 12.3 oz) 2020 11:18 AM CDT Height 188.2 cm (6' 2.09) 12/31/2020 1 1:18 AM CDT Body Mass Index 37.49 12/31/2020 11:18 AM CDT Plan of Treatment Health Maintenance Due Date Last Done Comments ADVANCE CARE PLANNING 1981 ANNUAL REVIEW OF HM ORDERS 1981 YEARLY PREVENTIVE VISIT 1981 HIV SCREENING 1996 HEPATITIS C SCREENING 1999 HEPATITIS B IMMUNIZATION (2 of 3 - 3-dose series) 06/24/1999 05/27/1999 LIPID 2016 COVID-19 Vaccine (3 - season) 2022 08/04/2020, 07/07/2020 INFLUENZA VACCINE (#1) 2022 01/04/2022 PHQ-2 (once per calendar year) 2023 12/31/2020 DTAP/TDAP/TD IMMUNIZATION (7 - Td or Tdap) 02/15/2032 02/14/2022, 12/31/2011, 05/29/2007, Additional history exists HPV IMMUNIZATION Aged Out No longer e ligible based on patient's age to complete this topic IPV IMMUNIZATION Aged Out No longer e ligible based on patient's age to complete this topic MENINGITIS IMMUNIZATION Aged Out No l onger eligible based on patient's age to complete this topic Pneumococcal Vaccine: Pediatrics (0 to 5 Years) and At-Risk Patients (6 to 64 Years) Aged Out No longer eligible based on patient's age to complete this topic RSV MONOCLONAL ANTIBODY Aged Out No l onger eligible based on patient's age to complete this topic Care Teams Clinical Trial Coordinator Relationship Specialty Start Date End Date Sindhu Bonds [address] [place], [place] [id number] PCP - General Family Medicine 12/30/20 Jasen Blanco Genetic Counselor 12/30/20 Radha De La Cruz MD Neurology 12/30/20 Rebekah Walker MD [address] [place], [place] [address] Genetics, Clinical 12/31/20
--- OUTSIDE RECORDS SUMMARY | 2023-04-16 10:45 | XMS_ITS | Referral Summary ---
Author Name Unknown Organization [facility] Address [address] [place] [address] Care Team Providers Care Buckle Wire Inserter Name Role Phone Sindhu Bonds Mandy Primary Care Provider [phone] Jasen Blanco Unavailable Unavailable Radha De La Cruz MD Unavailable UnavailRebekah Kaplan MD Unavailable [phone] Allergies Active Allergy Reactions Criticality Noted [...] 12/31/2020 11:18 AM CDT Plan of Treatment Not on file Care Teams Buckle Wire Inserter Relationship Specialty Start Date End Date Sindhu Bonds [address] [place] [address] PCP - General Family Medicine 12/30/20 Jasen Blanco Genetic Counselor 12/30/20 Radha De La Cruz MD Neurology 12/30/20 Rebekah Walker MD [address] [place] [address] Genetics, Clinical 12/31/20
--- OUTSIDE RECORDS SUMMARY | 2023-04-16 10:46 | XMS_ITS | Encounter Summary ---
Author Name Unknown [facility] Address [address], [place] [address] Care Team Providers Care Dog Handler Or Trainer Name Role Phone Sindhu Bonds MD Primary Care Provider [phone] Reason for Visit * Reason Comments Refill sertraline (ZOLOFT) 100 MG tablet [Pharmacy Med Name: SERTRALINE HCL 100 MG TABLET] Encounter Details Date Type Department Care Team Description 09/05/2022 Refill [facility] [address] [place], [place] [id number] [place] [address] [place] [address] Refill (sertraline (ZOLOFT) 100 MG tablet [Pharmacy Med Name: SERTRALINE HCL 100 MG TABLET]) Social History Tobacco Use Types Packs/Day Years Used Date Smoking Tobacco: Never Smokeless Tobacco: Current Chew Alcohol Use Standard Drinks/Week Comments Yes 5 (1 standard drink = 0.6 oz pur e alcohol) 6/weekly PHQ-2 Answer Date Recorded PHQ-2 Score 2 08/27/2021 Sex and Gender Information Value Date Recorded Sex Assigned at Not on file Gender Identity Not on file Sexual Orientation Not on file documented as of this encounter Nursing Notes * Jackie Hancock - 09/08/2022 4:35 PM CDT Medication Refill - Due for Visit Refill was approved for 90 day supply, patient is due to be seen in the next 90 days. Called patient, was: Successful in reaching patient We recently received a refill request for one of your medications. To continue managing your medication refills, your clinician would like to see you for a(n): Patient is due for: Video/Office Visit Patient declined to schedule due to: will call back to schedule * Luisana Howe, RN - 09/08/2022 3:39 PM CDT Further Assistance Needed on Refill from [employer] Patient is due for Qualifying Visit or Qualifying Visit & lab(s) Medication has been refilled for 90 day supply per standing order. Patient is due for a Office/Video Visit in the next 90 days. Call Patient and document using .WIL. After attempting to schedule patient: Close encounter. Medication(s) refilled per standing order. Requested Prescriptions Pending Prescriptions Disp Refills sertraline (ZOLOFT) 100 MG tablet [Pharmacy Med Name: SERTRALINE HCL 100 MG TABLET] 90 Tablet 0 Sig: TAKE 1 TABLET BY MOUTH EVERY DAY * Interface, Out Surescripts Prov Query - 09/05/2022 1:05 AM CDT sertraline (ZOLOFT) 100 MG tablet [Pharmacy Med Name: SERTRALINE HCL 100 MG TABLET] Antidepressants -> An office visit is overdue (performed over 12 months ago, required every 12 months). -> The most recent order on 08/27/2022. -> Refill x 1 month (courtesy refill. overdue for an office visit) Last qualifying visit: 08/27/2021 (with JAY LEAVITT) Next scheduled visit: None Last ordered by JAY LEAVITT: 08/27/2021 (374 days ago) QTY: 90, Refills: 3, Sig: take 1 tablet (100 mg) by mouth daily. (changed but equivalent) Age: 42 [employer] Emb[employer] Refills, Reference: [id number], 09/05/2022 1:05:57 AM CDT, Pool: PARHAM RN ([id number]) documented in this encounter Plan of Treatment Not on file documented as of this encounter Visit Diagnoses Diagnosis CLIFF (generalized anxiety disorder) (HRC) Generalized anxiety disorder documented in this encounter Care Teams Dog Handler Or Trainer Relationship Specialty [place] [address] [place] [address] PCP - General Family Practice 02/01/20 documented as of this encounter
--- OUTSIDE RECORDS SUMMARY | 2023-04-16 10:46 | XMS_ITS | Encounter Summary ---
Author Name Unknown Organization [facility] Address [address] [address] Care Team Providers Care Monotype Keyboard Operator Name Role Phone Sindhu Bonds MD Primary Care Provider [phone] Encounter Details Date Type Department Care Team Description 12/07/2022 11:30 AM CDT Lab Visit [facility] [address] [place] [address] Hypertension, unspecified type (HRC); Elevated fasting glucose Social History Tobacco Use Types Packs/Day Years Used Date Smoking Tobacco: Never Smokeless Tobacco: Current Chew Alcohol Use Standard Drinks/Week Comments Yes 5 (1 standard drink = 0.6 oz pur e alcohol) 6/weekly PHQ-2 Answer Date Recorded PHQ-2 Score 0 12/07/2022 Sex and Gender Information Value Date Recorded Sex Assigned at Not on file Gender Identity Not on file Sexual Orientation Not on file documented as of this encounter Plan of Treatment Not on file documented as of this encounter Procedures Procedure Name Priority Date/Time Associated Diagnosis Comments BASIC METABOLIC PANEL Routine 12/07/2022 11:34 AM CDT Hypertension, unspecified type (HRC) HGB A1C Routine 12/07/2022 11:34 AM CDT Elevated fasting glucose documented in this encounter Results * Hgb A1C (12/07/2022 11:34 AM CDT) Hemoglobin A1C 5.5 <=5.6 % 12/07/2022 4:12 PM CDT [facility] Estimated Average Glucose (Calc) 111 < 117 mg/dL 12/07/2022 4:12 PM COUNT INCLUDES [facility] Comment:Estimated average gl ucose (eAG) converts A1c into glucose units (mg/dL) and estimates average glucose over the past approximately 3 months. The eAG reference interval (<117 mg/dL) corresponds to an A1c of <5.7%. Blood Venipuncture / Unknown 12/07/2022 11:34 AM CDT 12/07/2022 11:34 AM CDT Jay Leavitt MD LAB_1 [facility] [address] [phone] * Basic Metabolic Panel (12/07/2022 11:34 AM CDT) Sodium 139 136 - 145 mmol/L 12/07/2022 2:59 PM [facility] Potassium 4.3 3.5 - 5.1 mmol/L 12/07/2022 2:59 PM [facility] Chloride 106 98 - 109 mmol/L 12/07/2022 2:59 PM [facility] CO2 25 20 - 29 mmol/L 12/07/2022 2:59 PM [facility] Anion Gap 8 7 - 16 mmol/L 12/07/2022 2:59 PM [facility] Calcium 9.6 8.4 - 10.4 mg/dL 12/07/2022 2:59 PM [facility] BUN 14 7 - 26 mg/dL 12/07/2022 2:59 PM [facility] Creatinine 1.03 0.73 - 1.18 mg/dL 12/07/2022 2:59 PM [facility] Glucose 87 70 - 100 mg/dL 12/07/2022 2:59 PM [facility] Comment:The given reference range is for the fasting state. Non-fasting reference range for glucose is 70 - 180 mg/dL. GFR, Estimated >60 >60 mL/min/1. 73m2 12/07/2022 2:59 PM CDT [facility] Hours Fasting 0.1 8 - 12 Hours 12/07/2022 2:59 PM CDT [facility] Blood Venipuncture / Unknown 12/07/2022 11:34 AM CDT 12/07/2022 11:34 AM CDT Jay Leavitt MD LAB_1 Performing Organization Address City/State/[facility] Co de Phone Number [facility] [address] [id number] [phone] documented in this encounter Visit Diagnoses Diagnosis Hypertension, unspecified type (HRC) Elevated fasting glucose Impaired fasting glucose documented in this encounter Care Teams Monotype Keyboard Operator Relationship Specialty [place] [address] [place] [address] PCP - General Family Practice 02/01/20 documented as of this encounter
--- OUTSIDE RECORDS SUMMARY | 2023-04-16 10:46 | XMS_ITS | Encounter Summary ---
Author Name Unknown Organization [facility] Address [address] [place] [address] Care Team Providers Care Systems Programmer Name Role Phone Sindhu Bonds Primary Care Provider [phone] Jasen Blanco Unavailable Unavailable Radha De La Cruz MD Unavailable UnavailRebekah Kaplan MD Unavailable [phone] Cheyenne Ryan Unavailable [phone] Encounter Details Date Type Department Care Team ([facility] st Contact Info) Description 02/02/2021 [facility] Medical Advice [facility] [address] [place] [address] [address],[place] [address] Rebekah Walker MD [address] [place] [address]425 Social History Tobacco Use Types Packs/Day Years Used Date Smoking Tobacco: Never Assessed PHQ-2 Answer Date Recorded PHQ-2 Score 0 12/31/2020 Sex and Gender Information Value Date Recorded Sex Assigned at Not on file Gender Identity Not on file Sexual Orientation Not on file COVID-19 Exposure Response Date Recorded In the last month, have you been in contact with someone who was confirmed or suspected to have Coronavirus / COVID-19? No / Unsure 02/02/2021 7:15 AM HOSPITAL CARRIER documented as of this encounter Plan of Treatment Not on file documented as of this encounter Visit Diagnoses Not on filedocumented in this encounter Care Teams Systems Programmer Relationship Specialty Start Date End Date Sindhu Bonds [address] [place] [address] PCP - General Family Medicine 12/30/20 Jasen Blanco Genetic Counselor 12/30/20 Radha De La Cruz MD Neurology 12/30/20 Rebekah Walker MD [address] [place] [address] Genetics, Clinical 12/31/20 [place] [address] [place] [address] 588644 Assigned OBGYN Provider 03/01/2104/25 documented as of this encounter
--- OUTSIDE RECORDS SUMMARY | 2023-04-16 10:46 | XMS_ITS | Encounter Summary ---
Author Name Unknown Organization [facility] Address [address] [place] [address] Care Team Providers Care Safety And Occupational Health Manager Name Role Phone Sindhu Bonds Primary Care Provider [phone] Jasen Blanco Unavailable Unavailable Radha De La Cruz MD Unavailable UnavailRebekah Kaplan MD Unavailable [phone] Encounter Details Date Type Department Care Team (Latest Contact Info) Description 09/16/2022 Travel Social History Tobacco Use Types Packs/Day Years [...] PM CDT documented as of this encounter Plan of Treatment Not on file documented as of this encounter Visit Diagnoses Not on filedocumented in this encounter Care Teams Safety And Occupational Health Manager Relationship Specialty Start Date End Date Sindhu Bonds [address] [place] [address] PCP - General Family Medicine 12/30/20 Jasen Blanco Genetic Counselor 12/30/20 Radha De La Cruz MD Neurology 12/30/20 Rebekah Walker MD [address] [place] [address] Genetics, Clinical 12/31/20 documented as of this encounter
--- OUTSIDE RECORDS SUMMARY | 2023-04-16 10:46 | XMS_ITS | Encounter Summary ---
Author Name Unknown Organization [facility] Address [address] [address] Care Team Providers Care Hand Mold Maker Name Role Phone Sindhu Bonds MD Primary Care Provider [phone] Encounter Details Date Type Department Care Team Description 08/29/2015 Correspondence None No Primary/Referring, Phy CHIROPRACTIC PT LIABILITY PAW Social History Tobacco Use Types Packs/Day Years Used Date Smoking Tobacco: Never Alcohol Use Standard Drinks/Week Comments Yes 5 (1 standard drink = 0.6 oz pur e alcohol) 6/weekly Sex and Gender Information Value Date Recorded Sex Assigned at Not on file Gender Identity Not on file Sexual Orientation Not on file documented as of this encounter Plan of Treatment Not on file documented as of this encounter Visit Diagnoses Not on filedocumented in this encounter Care Teams Hand Mold Maker Relationship Specialty [place] [address] [place] [address] PCP - General Family Practice 02/01/20 documented as of this encounter
--- OUTSIDE RECORDS SUMMARY | 2023-04-16 10:46 | XMS_ITS | Encounter Summary ---
Author Name Unknown Organization [facility] Address [address], [place] [address] Care Team Providers Care Farmer General Name Role Phone Sindhu Bonds MD Primary Care Provider [phone] Reason for Visit * Reason Comments BP CHECK, Encounter Details Date Type Department Care Team Description 12/07/2022 10:40 AM CDT Office Visit [facility] [address] [place], [place] [id number] [place] [address] [place], [place] [id number] Hypertension, unspecified type (HRC) (Primary Dx); Elevated fasting glucose Social History Tobacco Use [...] on file documented as of this encounter Last Filed Vital Signs Vital Sign Reading Time Taken Comments Blood Pressure 141/81 12/07/2022 11:07 AM CDT Pulse 64 12/07/2022 11:07 AM CDT Temperature - - Respiratory Rate - - Oxygen Saturation - - Inhaled Oxygen Concentration - - Weight - - Height - - Body Mass Index - - documented in this encounter Patient Instructions * Attachments The following attachments cannot be sent through Care Everywhere. * !The DASH Eating Plan: Healthy eating to lower your blood pressure (Bruneian) * !How to Take Your Blood Pressure at Home (Bruneian) documented in this encounter Progress Notes * Jay Leavitt MD - 12/07/2022 10:40 AM CDT Historical: Chief Complaint Patient presents with BP CHECK, High Blood Pressure Do you take any prescription medication for your high blood pressure? Not taking Do you check home blood pressure readings? YES Not recently - but states its historically right on the edge. 1 month ago went to ER - was borderline high How often do you exercise? 1 - 2 times per week, 30 minutes or more Do you have any shortness of breath, tightening or pressure in your chest with activity such as walking or climbing stairs? No Do you restrict how much salt you eat? No Do you have sleep apnea, snore loudly or stop breathing when you sleep? YES snore loudly BP Readings from Last 3 Encounters: 12/07/22 (!) 141/81 08/27/21 (!) 145/77 11/18/20 (!) 148/85 Checks BP at home once in a while. Runs mid 140s/80s No CP, chest pressure, or shortness of breath today Was in ED in August, EKG showed: Interpretation ECG Sinus bradycardia Moderate voltage criteria for LVH, may be normal variant Borderline ECG No previous ECGs available Not much exercise outside of yard work. Notes he eats out 1-2 times a week Observed: BP (!) 141/81 (BP Location: Right Arm, BP Cuff Size: Large) Pulse 64 Physical Exam Nursing note reviewed. Constitutional: General: He is not in acute distress. Appearance: Normal appearance. He is not toxic-appearing or diaphoretic. HENT: Head: Normocephalic. Eyes: Conjunctiva/sclera: Conjunctivae normal. Cardiovascular: Rate and Rhythm: Normal rate and regular rhythm. Heart sounds: Normal heart sounds. Pulmonary: Effort: Pulmonary effort is normal. No respiratory distress. Breath sounds: No wheezing or rales. Musculoskeletal: Cervical back: Neck supple. Skin: Comments: Normal skin of visualized areas Neurological: Mental Status: He is alert. Psychiatric: Attention and Perception: Attention normal. Mood and Affect: Mood normal. Mood is not anxious or depressed. Speech: Speech normal. Assessment/Plan: Hypertension, unspecified type (HRC) - Basic Metabolic Panel; Future - lisinopril (ZESTRIL) 10 MG tablet; Take 1 Tablet (10 mg) by mouth daily. Elevated fasting glucose - Hgb A1C; Future Labs from emergency department visit reviewed, electrolytes normal, creatinine slightly elevated at1.25. Plan to recheck BMP today. Labs also showed slight elevation in glucose, plan to check A1c today Initiate lisinopril 10 mg daily. Education materials provided and reviewed on DASH style diet and checking blood pressure at home. Please see orders and patient instructions Jay Leavitt MD documented in this encounter Plan of Treatment Not on file documented as of this encounter Results * Hgb A1C (12/07/2022 11:34 AM CDT) Pathologist [facility] Hemoglobin A1C 5.5 <=5.6 % 12/07/2022 4:12 PM CDT [email or web address] Estimated Average Glucose (Calc) 111 < 117 mg/dL 12/07/2022 4:12 PM CDT [facility] Comment:Estimated average gl ucose (eAG) converts A1c into glucose units (mg/dL) and estimates average glucose over the past approximately 3 months. The eAG reference interval (<117 mg/dL) corresponds to an A1c of <5.7%. Blood Venipuncture / Unknown 12/07/2022 11:34 AM CDT 12/07/2022 11:34 AM CDT Jay Leavitt MD LAB_1 [facility] [address] [place] [address], [facility] [phone] * Basic Metabolic Panel (12/07/2022 11:34 AM CDT) Pathologist [facility] Sodium 139 136 - 145 mmol/L 12/07/2022 2:59 PM CDT [email or web address] Potassium 4.3 3.5 - 5.1 mmol/L 12/07/2022 2:59 PM CDT [facility] Chloride 106 98 - 109 mmol/L 12/07/2022 2:59 PM CDT [facility] CO2 25 20 - 29 mmol/L 12/07/2022 2:59 PM CDT [facility] Anion Gap 8 7 - 16 mmol/L 12/07/2022 2:59 PM CDT [facility] Calcium 9.6 8.4 - 10.4 mg/dL 12/07/2022 2:59 PM CDT [facility] BUN 14 7 - 26 mg/dL 12/07/2022 2:59 PM CDT [facility] Creatinine 1.03 0.73 - 1.18 mg/dL 12/07/2022 2:59 PM CDT [facility] Glucose 87 70 - 100 mg/dL 12/07/2022 2:59 PM [facility] Comment:The given reference range is for the fasting state. Non-fasting reference range for glucose is 70 - 180 mg/dL. GFR, Estimated >60 >60 mL/min/1. 73m2 12/07/2022 2:59 PM CDT [facility] Hours Fasting 0.1 8 - 12 Hours 12/07/2022 2:59 PM [facility] Blood Venipuncture / Unknown 12/07/2022 11:34 AM CDT 12/07/2022 11:34 AM CDT Jay Leavitt MD LAB_1 Performing Organization Address City/State/[facility] Co de Phone Number [facility] [address] [phone] documented in this encounter Visit Diagnoses Diagnosis Hypertension, unspecified type (HRC)- Primary Elevated fasting glucose Impaired fasting glucose documented in this encounter Care Teams Farmer General Relationship Specialty [place] [address] [place] [address] PCP - General Family Practice 02/01/20 documented as of this encounter
--- OUTSIDE RECORDS SUMMARY | 2023-04-16 10:46 | XMS_ITS | Encounter Summary ---
Author Name Unknown Organization [facility] Address [address] [place] [address] Care Team Providers Care Bicycle I Assembler Name Role Phone Bonds Sindhu Mandy Primary Care Provider [phone] Jasen Blanco Unavailable Unavailable Radha De La Cruz MD Unavailable UnavailRebekah Kaplan MD Unavailable [phone] Cheyenne Ryan Unavailable [phone] Encounter Details Date Type Department Care Team (Late st Contact Info) Description 02/04/2021 [facility] [address] [address] [facility] Social History Tobacco Use Types Packs/Day Years [...] COVID-19? No / Unsure 02/02/2021 7:15 AM FIBER OPTIC ASSEMBLER documented as of this encounter Plan of Treatment Not on file documented as of this encounter Visit Diagnoses Not on filedocumented in this encounter Care Teams Bicycle I Assembler Relationship Specialty Start Date End Date Sindhu Bonds [address] [place] [address] PCP - General Family Medicine 12/30/20 Jasen Blanco Genetic Counselor 12/30/20 Radha De La Cruz MD Neurology 12/30/20 Rebekah Walker MD [address] [place], [place] 3[address] Genetics, Clinical 12/31/20 Cheyenne Ryan GC [address] [place] [address] 831104 Assigned OBGYN Provider 03/01/2104/25 documented as of this encounter
--- OUTSIDE RECORDS SUMMARY | 2023-04-16 10:46 | XMS_ITS | Clinical Summary ---
Author Name Unknown Organization [facility] Address [address] [place] [address] Care Team Providers Care Polymer Chemist Name Role Phone Sindhu Bonds MD Primary Care Provider [phone] Source Comments You are receiving this document as you are listed as the primary care provider,follow-up provider, or the patient has been referred to you for consultation.This is in compliance with the Medicare and[facility] Cent[facility] EHR Incentive Program,which states Providers who transition their patient to another setting of careor provider of care or refers their patient to another provider of care shouldprovide summary care record for each transition of care or referral. [facility] Allergies Active Allergy Reactions Criticality Noted Date Comments Amoxicillin Rash 04/09/2013 As a child Medications Medication Sig Dispensed Refills Start Date End Date Status sertraline (ZOLOFT) 100 MG tabletIndications:CLIFF (generalized anxiety disorder) (HRC) TAKE 1 TABLET BY MOUTH EVERY DAY 90 Tablet 0 09/08/2022 Active lisinopril (ZESTRIL) 10 MG tabletIndications:Hyp ertension, unspecified type (HRC) Take 1 Tablet (10 mg) by mouth daily. 90 Tablet 3 12/07/2022 12/07/2023 Active Active Problems Problem Noted Date Diagnosed Date Hypertension 12/07/2022 Essential hypertension 08/27/2021 BMI 37.0-37.9, adult 08/27/2021 CLIFF (generalized anxiety disorder) 08/27/2021 Segmental and somatic dysfunction of sacral mariaelena on 11/05/2016 Segmental and somatic dysfunction of thoracic re gion 11/05/2016 Segmental and somatic dysfunction of cervical re gion 11/05/2016 Low back pain 11/05/2016 Pain in thoracic spine 11/05/2016 Cervicalgia 11/05/2016 Spasm of back muscles 11/05/2016 Resolved Problems Problem Noted Date Diagnosed Date Resolved Date Cervicalgia 04/07/2015 08/29/2015 Spasm of muscle 04/07/2015 08/29/2015 Nonallopathic lesion of cervical region 04/10/2013 08/29/2015 Overview: Epic ; Other nonallopathic lesion of cervical region Nonallopathic lesion of thoracic region 04/10/2013 08/29/2015 Overview: Epic Nonallopathic lesion of lumbar region 04/10/2013 08/29/2015 Overview: Epic Spasm of muscle 04/10/2013 04/07/2015 Encounters Date Type Department Care Team Description 04/16/2023 Nurse Triage Careline [address] [place], [place] [phone] Unassigned, Provider CHEST PAIN from Last 3 Months Immunizations Name Administration Dates Next Due DTP 1981,1981,1981 HepB Ped/Adol (0-18 yrs) 05/27/1999 MMR 07/30/1982 Moderna Monovalent 12+ 08/04/2020,07/07/2020 OPV, Unspecified Formulation 1981,08/26/18 82,1981 Tdap 12/31/2011,05/29/2007 Social History Tobacco Use Types Packs/Day Years [...] Pulse 64 12/07/2022 11:07 AM CDT Temperature 36.4 ??C (97.5 ??F) 08/27/2021 4:57 PM CD T Respiratory Rate - - Oxygen Saturation - - Inhaled Oxygen Concentration - - Weight 136.8 kg (301 lb 9.6 oz) 08/27/2021 4:57 PM CDT Height 190.5 cm (6' 3) 08/27/2021 4:57 PM CDT Body Mass Index 37.7 08/27/2021 4:57 PM CDT Plan of Treatment Health Maintenance Due Date Last Done Comments Hep C Screening (Preventive Services) 1981 HIV Screening (Preventive Services) 1997 HepB (2) 06/24/1999 05/27/1999 Cholesterol 2016 Adult Preventive Visit 09/20/2021 09/21/2019 COVID-19 Vaccine (3 - season) 2022 08/04/2020, 07/07/2020 Influenza (#1) 2022 Prediabetes: HGBA1C 12/08/2023 12/07/2022 Zoster/Shingles (1 of 2) 2031 DTaP/Tdap/Td (7 - Tdap) 02/15/2032 02/15/20 22, 12/31/2011, 05/29/2007, Additional history exists IPV (Polio) Aged Out 1981, 03/1981, 1981 No longer eligible based on patient's age to complete this topic HPV Vaccine Aged Out No longer eligi ble based on patient's age to complete this topic HepA Aged Out No longer eligi ble based on patient's age to complete this topic Hib Aged Out No longer eligi ble based on patient's age to complete this topic MCV4 Aged Out No longer eligi ble based on patient's age to complete this topic Pneumococcal Aged Out No longer eligi ble based on patient's age to complete this topic Care Teams Polymer Chemist Relationship Specialty [place] [address] [place] [address] PCP - General Family Practice 02/01/20
--- OUTSIDE RECORDS SUMMARY | 2023-04-16 10:46 | XMS_ITS | Encounter Summary ---
Author Name Unknown Organization [facility] Address [address] [place] [address] Care Team Providers Care Master Barber Name Role Phone Sindhu Bonds Primary Care Provider [phone] Jasen Blanco Unavailable Unavailable Radha De La Cruz MD Unavailable UnavailRebekah Kaplan MD Unavailable [phone] Cheyenne Ryan Unavailable [phone] Encounter Details Date Type Department Care Team ([facility] st Contact Info) Description 02/03/2021 [facility] Medical Advice [facility] [address] [place] [address] [address],[place] [address] Rebekah Walker MD [address] [place] [id number] Social History Tobacco Use Types Packs/Day Years [...] COVID-19? No / Unsure 02/02/2021 7:15 AM PLANNING ADVISOR documented as of this encounter Plan of Treatment Not on file documented as of this encounter Visit Diagnoses Not on filedocumented in this encounter Care Teams Master Barber Relationship Specialty Start Date End Date Sindhu Bonds [address] [place] [address] PCP - General Family Medicine 12/30/20 Jasen Blanco Genetic Counselor 12/30/20 Radha De La Cruz MD Neurology 12/30/20 Rebekah Walker MD [address] [place] [address] Genetics, Clinical 12/31/20 [place] [address] [place] [address] [id number] Assigned OBGYN Provider 03/01/2104/25 documented as of this encounter
--- OUTSIDE RECORDS SUMMARY | 2023-04-16 10:46 | XMS_ITS | Encounter Summary ---
Author Name Unknown Organization [facility] Address [address] [place] [address] Care Team Providers Care College President Name Role Phone Sindhu Bonds MD Primary Care Provider [phone] Reason for Visit * Reason Comments CHEST PAIN Encounter Details Date Type Department Care Team Description 04/16/2023 Nurse Triage Careline [address] [place], [place] [address] Unassigned, Provider [address] [place] [address] CHEST PAIN Social History Tobacco Use Types Packs/Day Years [...] as of this encounter Nursing Notes * Negar Cr RN - 04/16/2023 8:56 AM CST Verified patient identity: Yes Situation/Background (brief explanation of current symptoms/situation): starting yesterday developed a soreness with inhalation under his sternum. Today is constant, no shortness of breath, no nausea,no sweating, no radiation Reviewed with patient pertinent medical history (as it related to the call): Yes Reviewed with patient pertinent medications (as they relate to call): Yes 139/82 BP last night Reviewed with patient pertinent allergies (as they relate to call): Yes It is possible that you are experiencing a harmful medical condition for which urgent care is not asafe place for your symptoms. Any delay in your care such as waiting for an appointment or being seen in the wrong place could be harmful to your health. You have the right to refuse my recommendation but I need to make sure you understand. Do you understand? Yes Patient is going to go to the in [place] now. Negar Cr RN 04/16/2023, 8:58 AM Reason for Disposition [1] Chest pain lasts > 5 minutes AND [2] age > 30 AND [3] one or more cardiac risk factors (e.g., diabetes, high blood pressure, high cholesterol, smoker, or strong family history of heart disease) Protocols used: Chest [id number] DDED SOFTWARE MANAGER * Isaac Barney - 04/16/2023 8:54 AM CST Verified patient using 3 identifiers: Yes Caller reports the following red flag symptoms: Chest pain in upper sternum and lower esophagus areas. Plan: Transferred directly to a CareLine RN. DDED SOFTWARE MANAGER documented in this encounter Plan of Treatment Not on file documented as of this encounter Visit Diagnoses Not on filedocumented in this encounter Care Teams College President Relationship Specialty [place] [address] [place] [address] PCP - General Family Practice 02/01/20 documented as of this encounter
[2023-04-16 10:47] LABS: Creatinine* 0.8 mg/dL (0.5-1.5); Est. Creatinine Clearance* 145.23; Estimated Glomerular Filt Rate 114 ml/min
[2023-04-16 10:48] LABS: Anion Gap 7 mEq/L (7-15); Blood Urea Nitrogen* 14 mg/dL (5-24); Calcium* 9.3 mg/dL (8.4-10.6); Carbon Dioxide* 25 mmol/L (20-32); Glucose* 108 mg/dL (60-115)
[2023-04-16 11:00] VITALS: BP 119/58; PULSE 67; RESP 15; O2SAT 95
[2023-04-16 11:06] LABS: PCR FLU A Negative PCR FLU A (Negative); PCR FLU B Negative PCR FLU B (Negative); PCR RSV Negative PCR RSV (Negative); SARS PCR* Negative SARS-CoV-2 (Negative)
[2023-04-16 11:30] VITALS: BP 114/67; PULSE 61; RESP 12; O2SAT 96
[2023-04-16 12:00] VITALS: BP 120/65; PULSE 66; RESP 20; O2SAT 96
[2023-04-16 12:30] VITALS: BP 111/58; PULSE 65; RESP 15; O2SAT 97
== END 2023-04-16 13:00 | disposition home or self-care (01) ==
PROVIDERS: Emergency Provider Student in an Organized Health Care Education/Training Program
DX: R07.89 Other chest pain (principal)
CPT/HCPCS: 36415; 71046; 80048; 84484; 85025; 87631; 93005; 99283; 99284; 99285